=== PATIENT | male | born 1990 | race Caucasian/White ===

== ENCOUNTER 2018-08-08 02:08 | Emergency (ER) | payer MEDICAID, SELFPAY ==
[2018-08-08 02:13] VITALS: BP 145/89; PULSE 82; RESP 20; TEMP 37.4; O2SAT 95
--- NOTE | 2018-08-08 02:23 | DI.RAD_ITS ---
SYMPTOM/DIAGNOSIS: CHEST PAIN, SHORTNESS OF BREATH PA AND LATERAL CHEST: Comparison is made with [birth year] 2016 thoracic spine. The heart size is normal. The lungs are suboptimally inflated but clear. No infiltrate, effusion or pneumothorax seen. IMPRESSION: Negative chest x-ray.
[2018-08-08 02:42] LABS: Abs Immature Grans 0.04 k/cumm (0.0-0.09); Absolute Basophil Count 0.02 k/cumm (0.0-0.2); Absolute Lymphocyte Count 3.21 k/cumm (1.2-3.4); Absolute Monocyte Count 1.12 k/cumm (0.11-0.7); Basophils % 0.2; Eosinophils % 2.6; HCT 45.8 % (40.0-50.0); HGB 15.7 g/dL (13.5-17.5); Immature Grans % 0.3; Lymphocytes % 27.7; Mean Corp. HGB Concentration 34.3 g/dL (32.0-36.0); Mean Corpuscular Hemoglobin 32.3 pg (27.0-33.0); Mean Corpuscular Volume 94.2 fL (80-95); Mean Platelet Volume 9.8 fL (8.0-11.0); Monocytes % 9.7; Neutrophils % 59.5; Platelet Count 239 x1000/uL (130-400); RBC 4.86 m/cumm (4.50-6.00); RBC Distribution Width 12.4 % (11.8-14.1); White Blood Cell Count 11.59 k/cumm (4.4-10.8)
[2018-08-08] MEDS: Normal Saline Flush 10 ML SYR IVP (02:45)
[2018-08-08 03:01] LABS: ALT 41 U/L (12-78); AST 24 U/L (15-37); Albumin 3.5 g/dL (3.4-5.0); Alkaline Phosphatase 61 U/L (46-116); Anion Gap 8.6 mmol/L (3-11); BUN 20 mg/dL (7-18); Bilirubin, Total 0.2 mg/dL (0.2-1.0); CO2 26.4 mmol/L (21.0-32.0); CREATININE 1.01 mg/dL (0.70-1.30); Calcium 9.1 mg/dL (8.5-10.1); Chloride 103 mmol/L (98-107); Glucose 98 mg/dL (70-100); Potassium 3.9 mmol/L (3.5-5.1); Sodium 138 mmol/L (136-145); Total Protein 7.8 g/dL (6.4-8.2); Troponin I < 0.02 ng/mL (0.00-0.06)
--- NOTE | 2018-08-08 03:05 | DI.VRAD_ITS ---
EXAM: XR Chest, 2 Views EXAM DATE/TIME: 08/08/2018 2:26 AM CLINICAL HISTORY: 28 years old, male; Signs and symptoms; Other: Chest pain, shortness of breath TECHNIQUE: XR of the chest, 2 views. COMPARISON: No relevant prior studies available. FINDINGS: Lungs: Unremarkable. No consolidation. Pleural space: Unremarkable. No evidence of pneumothorax. Heart/Mediastinum: Unremarkable. Heart size within normal limits for technique. Bones/joints: Unremarkable. No evidence of acute fracture. IMPRESSION: No acute findings. Dictated and Authenticated by: Flaquito Shultz MD. Ordering:TORO MATOS MD
[2018-08-08 03:15] LABS: D-Dimer 491 ng/mlFEU (<500)
[2018-08-08 03:36] VITALS: BP 131/71; PULSE 74; RESP 16; O2SAT 95
[2018-08-08 04:35] VITALS: BP 116/70; PULSE 76; RESP 16; TEMP 37; O2SAT 96
--- NOTE | 2018-08-08 04:47 | ED.GENADUL_ITS ---
Discharge Plan Disposition Patient Disposition: HOME Condition: Good Discharge Details Chief Complaint: Chest/Rib Clinical Impression: Chest pain, pleuritic ED Provider: Gino Campbell Meds and New Rx's Prescriptions: New ibuprofen 800 mg tablet 800 mg PO TID PRN (Reason: pain) Qty: 20 RF: 0 Changed acetaminophen [Mapap Extra Strength] 500 MG tablet 1,000 mg PO Q8H PRNQty: 0 RF: 0 Discontinued Ibuprofen [Ibuprofen Ib] 200 MG tablet 800 mg PO PRN PRNRF: 0 Discharge Instructions Additional Instructions: Use ibuprofen and acetaminophen and alternate between medications. Watch for rash as discussed and call PCP or return. Follow-up in a week if not doing better. Return to ED if you develop high fever, shortness of breath, new or worsening pain. Referrals: Primary Care Provider [Outside] Medical Decision Making Patient here with right sided pleuritic chest pain. Slightly diminished on the right on exam but I think it is because of splinting not pneumothorax. There is no rash. There is some tenderness laterally and anteriorly. His abdomen is benign. Saturations are anywhere from 93-96% on room air. Differential includes pneumothorax, pneumonia, pleurisy, PE. Not likely to be ACS given his age and presentation. His EKG is unremarkable. IV is established laboratory studies obtained including a d-dimer. He had taken ibuprofen prior to coming in so he is not given Toradol. He is given 4 of morphine. Chest x-ray is ordered. CXR normal per my review and preliminary radiology read. There is no pneumothorax. Laboratory studies unremarkable. D-dimer is 491 which is technically negative with a cutoff of 500. However, patient continues to have significant discomfort even with morphine. Saturations are 93-95% on room air. It is likely that this is going to be related to pleurisy but given his discomfort and slightly low saturations which may be related to splinting and smoking we discussed scanning for PE and patient is agreeable. CT of chest is negative. There is no PE, pneumonia, pneumothorax. Second troponin is negative. EKG remains normal. Patient is feeling better. Patient will be continued on nonsteroidals for presumed pleurisy. He is told to watch for vesicular rash. Follow-up with primary care next week. Return to ED if worse. Lab Data Lab results reviewed: Yes I reviewed the patient's lab results. ECG Data Attestation: I personally reviewed and interpreted this ECG (s) as follows: Prior ECG tracings: not available for review Interpretation: Sinus rhythm at a rate of 80. Normal axis and intervals. No acute ST changes noted. HPI General Mode of arrival: ambulatory . Date/Time Provider Initiated Documentation: 08/08/18 02:23 . Limitations to Documentation: no limitations . Information obtained by: patient . HPI Narrative: Patient presents to ED with right sided pleuritic chest pain. Patient reports developing some right upper back discomfort 1-2 days ago. He did not think much of it as he periodically develops back pain. Tonight he awoke around midnight with severe right sided chest pain. Pain is worse with breathing or coughing. It was not necessarily worse with movement. He did take ibuprofen at home with no relief. He waited a couple of hours but did not seem to be getting better. He felt short of breath in that he cannot take a deep breath and just regular breathing caused him discomfort and pain. He denies any fever or cough. He denies any abdominal pain, nausea, vomiting. He has no rash that he is aware of. He has not had this pain previously. Related Data Home Medications Medication Instructions Recorded Confirmed acetaminophen [Mapap Extra 1,000 mg PO Q8H PRN #0 tab 08/08/18 08/08/18 Strength] ibuprofen 800 mg PO TID PRN #20 tab 08/08/18 Previous Rx's Medication Instructions Recorded acetaminophen [Mapap Extra 1,000 mg PO Q8H PRN #0 tab 08/08/18 Strength] ibuprofen 800 mg PO TID PRN #20 tab 08/08/18 Allergies Allergy/AdvReac Type Severity Reaction Status Date / Time No Known Allergies Allergy Unverified 08/08/18 02:25 General Stated Complaint: Chest/Rib KARLA: 2 Review of Systems Constitutional Denies chills, Denies fever(s), Denies headache(s) and Denies weakness Eyes Denies change in vision and Denies eye pain ENT Denies facial pain, Denies headache(s), Denies neck pain and Denies sinus pain Cardiovascular Reports chest pain, Denies syncope, Denies pedal edema, Denies edema and Reports dyspnea Respiratory Denies chest congestion, Denies cough, Denies hemoptysis, Reports pain on inspiration, Reports pain with cough and Reports dyspnea Gastrointestinal Denies abdominal pain, Denies diarrhea, Denies nausea and Denies vomiting Genitourinary Denies hematuria, Denies dysuria and Denies flank pain Musculoskeletal Reports back pain, Denies muscle cramps, Denies neck pain and Denies numbness Integumentary/Breasts Denies rash Neurologic Denies syncope, Denies headache(s), Denies focal weakness, Denies numbness and Denies weakness PFSH S/P ACL reconstruction (Acute) Social History Smoking/Tobacco Use Status: Current every day Exam Const General: cooperative and uncomfortable Nutritional Appearance: average body habitus Orientation: alert and oriented x3 HENMT Head: normocephalic and atraumatic Neck Neck: normal visual inspection, full ROM, trachea midline and supple Chest Chest: tenderness rib (right lower lateral/anterior) and No rash Resp Effort & Inspection: no cough, no respiratory distress and other (Splinting) Auscultation: diminished lung sounds on the right (slightly diminished but present) throughout Cardio Rate: regular rate Rhythm: regular rhythm Heart Sounds: S1 normal and S2 normal Pulses: radial pulses present GI Palpation: soft, no guarding and nontender Back/Spine/Pelvis Back: No erythema and No back tenderness Thoracic/Lumbar Spine: thoraco-lumbar ROM normal and No pain with thoraco- lumbar ROM Skin General skin exam: no rashes or lesions noted Neuro General: alert, oriented x3, no focal motor deficits and CN's II-XI intact bilaterally Extrem General: no clubbing, cyanosis or edema and no calf tenderness Course Vital Signs Temperature 99.3 F 08/08/18 02:13 Pulse 82 08/08/18 02:13 Respiratory Rate 20 08/08/18 02:13 Blood Pressure 145/89 H 08/08/18 02:13 Pulse Oximetry 95 08/08/18 02:13 Temperature 99.3 F 08/08/18 02:13 Temperature Source Temporal Artery Scan 08/08/18 02:13 Pulse 82 08/08/18 02:13 Respiratory Rate 20 08/08/18 02:13 Respiratory Effort 08/08/18 02:24 Respiratory Depth Shallow 08/08/18 02:19 Respiratory Pattern Normal 08/08/18 02:19 Blood Pressure 145/89 H 08/08/18 02:13 Blood Pressure Position Sitting 08/08/18 02:13 Pulse Oximetry 95 08/08/18 02:13 Oxygen Delivery Method Room Air 08/08/18 02:13 Oxygen Flow Rate 0 08/08/18 02:13 Pain Level 10 08/08/18 02:19 Comment 08/08/18 02:13 Lab/Test Results Lab/Test Results: Laboratory Tests Range/Units 08/08/18 02:32 WBC (4.4-10.8) k/cumm 11.59 H RBC (4.50-6.00) m/cumm 4.86 Hgb (13.5-17.5) g/dL 15.7 Hct (40.0-50.0) % 45.8 MCV (80-95) fL 94.2 MCH (27.0-33.0) pg 32.3 MCHC (32.0-36.0) g/dL 34.3 RDW (11.8-14.1) % 12.4 Plt Count (130-400) x1000/uL 239 MPV (8.0-11.0) fL 9.8 Immature Gran % 0.3 Neutrophils % 59.5 Lymphocytes % 27.7 Monocytes % 9.7 Eosinophils % 2.6 Basophils % 0.2 Absolute Neutrophils (1.2-6.7) k/cumm 6.90 H Absolute Lymphocytes (1.2-3.4) k/cumm 3.21 Absolute Monocytes (0.11-0.7) k/cumm 1.12 H Absolute Eosinophils (0.0-0.7) k/cumm 0.30 Absolute Basophils (0.0-0.2) k/cumm 0.02
--- NOTE | 2018-08-08 04:50 | DI.CT_ITS ---
SYMPTOM/DIAGNOSIS: RIGHT PLEURITIC CHEST PAIN CHEST CT FOR PULMONARY EMBOLISM: CT angiography was performed with multi slice acquisition and multi planar and 3D reconstruction. There is no evidence of pulmonary emboli or aortic dissection. The lungs appear clear. No pleural or pericardial effusions are present. The visualized portions of the upper abdomen are unremarkable. IMPRESSION: Negative chest CT. No evidence of pulmonary emboli or other acute abnormality.
[2018-08-08] MEDS: Omnipaque 350 MG/ML 100 ML BTL IJ (04:52)
--- NOTE | 2018-08-08 04:58 | DI.VRAD_ITS ---
EXAM: CT Angiography Chest With Contrast EXAM DATE/TIME: 08/08/2018 4:00 AM CLINICAL HISTORY: 28 years old, male; Signs and symptoms; Other: Right pleuritic chest pain TECHNIQUE: Axial computed tomographic angiography images of the chest with intravenous contrast using CT angiography protocol. All CT scans at this facility use at least one of these dose optimization techniques: automated exposure control; mA and/or kV adjustment per patient size (includes targeted exams where dose is matched to clinical indication); or iterative reconstruction. Coronal and sagittal reformatted images were created and reviewed. MIP reconstructed images were created and reviewed. CONTRAST: 95 ml of Omnipaque 350 administered intravenously. COMPARISON: CR XR CHEST 2V PA LATERAL 08/08/2018 2:49 AM FINDINGS: Pulmonary arteries: Unremarkable. No obvious pulmonary emboli. Aorta: Unremarkable. No aortic aneurysm. No aortic dissection. Lungs: Minimal dependent atelectasis. Pleural space: Unremarkable. No pneumothorax. No pleural effusion. Heart: Unremarkable. No pericardial effusion. No obvious heart strain. Lymph nodes: Unremarkable. No enlarged lymph nodes. Bones/joints: Unremarkable. No acute fracture. Soft tissues: Unremarkable. IMPRESSION: Normal study. Dictated and Authenticated by: Flaquito Shultz MD. Ordering:TORO MATOS MD
[2018-08-08 05:42] VITALS: BP 119/80; PULSE 81; RESP 16; O2SAT 95
[2018-08-08 05:52] LABS: Troponin I 0.02 ng/mL (0.00-0.06)
[2018-08-08 07:23] VITALS: BP 126/72; PULSE 67; RESP 18; TEMP 36.7; O2SAT 97
== END 2018-08-08 07:15 | disposition home or self-care (01) ==
LOC: ER 07:17
PROVIDERS: Emergency Provider Emergency Medicine; PCP Internal Medicine Sleep Medicine
DX: R07.89 Other chest pain (principal)
CPT/HCPCS: 36415; 71275; 80053; 93005; 96374; 99285; 71046; 84484; 85025; 85379; 93010; 99284; J3490

== ENCOUNTER 2018-09-22 09:25 | Day surgery (SDC) | payer MEDICAID, SELFPAY ==
[2018-09-22] VITALS (8 sets, daily range): BP systolic 96–133; BP diastolic 44–87; PULSE 70–83; RESP 12–20; TEMP 36.6–37.2; O2SAT 95–98
[2018-09-22] MEDS: Lactated Ringers 1,000 ML 80 ML IV ×2 (10:10→12:30)
[2018-09-22] MEDS: Acetaminophen 500 MG TAB 1000 MG PO (10:31)
[2018-09-22] MEDS: Gabapentin 300 MG CAP PO (10:32)
[2018-09-22] MEDS: oxyCODONE-CR 10 MG TABCR PO (10:32)
[2018-09-22] MEDS: Celecoxib 200 MG CAP 400 MG PO (10:32)
[2018-09-22] MEDS: Ketorolac 30 MG/ML VIAL (14:21)
[2018-09-22] MEDS: Bupivacaine 0.25% Pres-Free 30 ML VIAL (14:21)
--- NOTE | 2018-09-22 14:37 | W.PM.DSUDISC ---
Discharge Plan Disposition Patient Disposition: HOME Condition: Good Discharge Details Reason For Visit: Revision L ACL Reconstruction, Meniscal Repair Attending Provider: Lex Garland Primary Care Provider: Km Ventura Home Meds and New Rx's Prescriptions: New oxycodone 5 mg tablet 5 mg PO Q4H Qty: 18 RF: 0 Continued ibuprofen 800 mg tablet 800 mg PO TID PRN (Reason: pain) Qty: 90 RF: 3 acetaminophen [Mapap Extra Strength] 500 MG tablet 1,000 mg PO Q8H PRNQty: 100 RF: 3 Discharge Instructions Additional Instructions: Activity: You may bear weight as tolerated on the leg as long as the brace is on and locked and you are using crutches for support. You should keep the brace on and locked at all times until your follow-up. You should use crutches to support the knee. You may move your ankle and toes as needed. Dressing: You should keep the knee dressing in place until your follow-up appointment. If it becomes soiled or it unravels, you should call to notify Dr. Garland and/or his staff. You may rewrap or overwrap until the follow-up. Medications: - You should take Tylenol and Ibuprofen around the clock for the first days-weeks. This will cover baseline pain control. - You have been prescribed a stronger medication, Oxycodone, use if needed. If this is necessary, and you need a refill, please call Dr. Garland's office or page him through the hospital. Follow-up: 1 week Referrals: Lex Garland MD [ [facility] STAFF PHYSICIAN] - Equipment/Supplies: Partial Weight Bearing Crutches Activity:: Elevate Remove Dressings/Wound Care:: Do Not Remove Shower/Bathe:: Cover Diet:: As Tolerated Discharge Orders Discharge Orders: Discharge Order (Routine); Ordered 09/22/18 Ordered By: Lex Garland DS: Diagnosis Discharge Diagnosis (1) Complete tear of anterior cruciate ligament of left knee: Status: Acute (2) Acute medial meniscus tear of left knee: Status: Acute (3) Acute lateral meniscal injury of left knee: Status: Acute
[2018-09-22] MEDS: Normal Saline Flush 10 ML SYR IV (15:27)
[2018-09-22] MEDS: HYDROmorphone 2 MG/ML VIAL IVP ×2 (15:28→15:34)
[2018-09-22] MEDS: oxyCODONE 5 MG TAB PO (16:21)
--- NOTE | 2018-09-23 09:02 | ROE_ITS ---
REPORT OF OPERATIVE PROCEDURE DATE OF SURGERY September 22, 2018 PREOPERATIVE DIAGNOSES Recurrent left ACL tear and medial meniscal tear. POSTOPERATIVE DIAGNOSES Recurrent left ACL tear, left medial meniscal tear, and left lateral meniscal tear. SURGERY Revision ACL reconstruction with patellar tendon autograft, lateral meniscal repair, medial meniscal repair. ANESTHESIA General. SURGEON Lex Garland M.D. LEATHER REPAIRER Erika Mayen ESTIMATED BLOOD LOSS 20 cc. COMPLICATIONS None. FINDINGS The Allograft ACL was not identifiable. The tunnels were vacant over the femur and the tibial tunnel had no significant soft tissue seen. An ACL reconstruction was performed with a BTB autograft with ex cellent fixation. The medial meniscus also had a vertical tear and the posterior horn of the meniscus , which seemed to be partially healed on the superior side, but not on the inferior side. This was al so repaired with a single Mitek Truespan meniscal repair device. The lateral meniscus also had a vert ical tear right at its periphery in the popliteal hiatus. This was repaired using two meniscal repair devices. These both helped allow the meniscus to not displace into the joint with probing. DISPOSITION The patient was awakened from anesthesia and taken to the PACU in a stable condition. INDICATION FOR PROCEDURE Javier is a 28-year-old who previously had an ACL tear with meniscal tear. He underwent an ACL reconstr uction with Allograft, as well as meniscal repair. He did well initially, but still had some pain unt il he had multiple falls in the recovery period. It was during this time that he continued to have pa in and instability. A repeat MRI showed that he had loss the integrity of the ACL graft. He continued to try conservative treatment options including therapy to bracing, however, he continued to have in stability and pain with any particular motions, especially those of turning or twisting. Given the fa ilure to conservative treatment options, I offered a revision, ACL reconstruction with evaluation of the meniscus and likely repair. I reviewed the risks of the procedure to include bleeding, infection, pain, stiffness, damage to nerves and vessels, damage to muscle and tendons, re-tear, hardware promi nence, hardware failure, failure of meniscal repair, damage to nerves and vessels, blood clot. Despit e these risks, he elected to proceed. PROCEDURE DESCRIPTION Javier was greeted in the preoperative holding area. His identity was confirmed and the correct side w as identified and marked. The history and physical was updated. The consent was reviewed with the galen hargrove and signed. He was then taken back to the Operating Room. He was placed in the supine position. All bony prominen bo were padded. A general anesthetic was administered. A nonsterile tourniquet was placed high on the left leg, but it was not used during the case. The lef t leg was prepped with ChloraPrep and draped in a standard fashion. Prophylactic antibiotics in the f orm of Cefazolin were given. A time-out was performed for safe surgery. The left leg was first examined, this showed a grossly unstable pivot shift test. He also had gross e xcursion, nearly 10 millimeters with Fadi maneuver. The left leg was then placed into the Spider2 pneumatic leg johnson. Previous portal sites were marked on the skin. The knee was insufflated with 50 cc of normal saline. A standard lateral arthroscope portal was then made. The knee was entered atrau matically with a blunt arthroscope. This gave us excellent visualization of the knee. There were mild inflammatory changes seen superiorly. No significant patellofemoral articulation deficits. There wer e no loose bodies in the lateral gutter or the medial gutter. The scope was then brought into the med ial compartment with the knee in a slight valgus stress. In maneuvering this position, it subluxed th e tibia forward as a positive pivot shift during the arthroscopy. The previous anteromedial portal wa s seen, this was used. It was quite low, but it was able to be brought on top of the anteromedial men iscus. The probe was inserted in this area. There was no significant cartilage defect, except for so me mild thinning seen anteriorly. The meniscus was probed, and there was a notable instability to the posterior horn of the medial meniscus. While driving over the top of the meniscus, there was no sepa ration from the capsule from the peripheral tissues. However, the undersurface of the medial meniscus in the posterior horn region did not seem to be attached fully. I performed a local debridement of this area identifying a loose horizontal leaflet. This was debrided down and a partial medial menisce ctomy. There still was a large component, which seemed to be unstable and I was able to probe a verti dave defect of the periphery of the posterior horn of the medial meniscus with a superior attachment. Therefore, I used a Mitek Truespan device, all inside meniscal repair system, to secure the inferior aspect of the posterior and the medial meniscus to the capsular tissues. Before proceeding with this, I used a shaver and a spinal needle to debride, and trephinate the area for blood flow. The meniscal device was then inserted and re-approximated the inferior surface to the periphery. There was no fur ther displacement of the meniscal component. The areas next to this were then debrided down for any l oose edges. The meniscus once again was probed and noted to be stable. The meniscal root was intact. The leg was then brought into a [id number] position. In this position, the lateral compartment wa s investigated. There was noted to be some changes to the posterior root of the lateral meniscus. Thi s was probably from an old debridement. There was some fraying seen. However, the root was intact. Th e excess degeneration in this area was debrided down with a shaver and did not show any signs of deta chment from the root. On closer inspection of the lateral meniscus, it did show there was a vertical tear seen on the posterior horn of the meniscus at the level of the popliteal hiatus. This was grossl y unstable. I then used a shaver to debride this area. I used a spinal needle to trephinate the area, as well as a rasp. Given the popliteus was in this area, I still continued with repair, trying to aim more shal low. I placed two Truespan devices in this area, one in a horizontal mattress fashion, one in a verti dave mattress fashion to reapproximate the tissues. They were grossly unstable with probing prior. Af ter the repair they were well attached to the periphery and did not displace into the joint. There wa s no significant cartilage damage in this area. The knee was then brought back into about 90 degrees of flexion. The notch was inspected. This showed really no remnant ACL tissue. There was some scarrin g seen next to the PCL. The plane between the PCL and the scarring was and the tissues were debrided. The femoral tunnel was identified, and this was cleaned fully with a shaver. The tibial em inence was also debrided down and, again showed no signs of any Allograft tissue remaining. With the scope in the lateral portal, and a shaver in the anteromedial portal, the knee was brought into hyper flexion, approximately 120 degrees. In this position, I had a direct shot of the shaver into the femo ral tunnel. I used a shaver to debride down any remnant tissue in the femoral tunnel. I also used an electrocautery device to further debride this down. The aperture of the tunnel measured approximately 12 mm in diameter. The depth was approximately 20 mm in diameter. I then used a 10.5-mm low profile reamer to advance this tunnel another 5 millimeters. I used a curette to scrape the inside of the wal l to promote any bony healing. The scope and equipment was then removed. We then turned our attention to the harvesting of the autograft. A midline incision was made overlyin g the knee. Dissection was carried down sharply through the skin and soft tissue. The peritenon was t hen identified. It was split separately to be repaired after the harvest of the graft. The peritenon was split from the level of the patella down to the level of the tibial tubercle. The tendon was iden tified, it was measured to be 33 millimeters in diameter in width. I aimed for at least a 10 mm graft with a larger bone block. Once the width of the graft was measured, the graft was incised sharply wi th a knife in the line with the patellar tendon fibers in the central third of the tendon. This was taken down sharply on the tibial tubercle and sharply upon to the patella. With adequate exposure, I then performed the bone block cutting from the patella. A 10 x 25 mm bone block was harvested. This w as harvested with sharp angles to form a triangular bone block and avoid any penetration into the art icular surface of the patella or cause a fracture. Using the osteotome to complete the cut, it easily from the base of the patella. We then turned our attention to the tibial tubercle side. Th is again was marked for a 25-mm length and a minimum 10-mm width. The bone block was able to be harve sted in a larger depth to have adequate bone. Once this was completed, osteotome was used to finish t he bone block resection. This was taken over to the back table and kept moist. Bone graft was taken f rom the proximal tibia to be used to fill patellar defect. This bone graft, was placed into the defec t on the patella. The tendon was loosely reapproximated. The peritenon was reapproximated with a #0-V icryl in a running fashion. This helped trap in the bone graft into the patella. The patella, patella r tendon and retinacular tissues, and the tibial tubercle and proximal tibia was then injected with a periarticular cocktail. This consisted of 20 cc of Exparel, 50 cc of 0.25% bupivacaine and 30 mg of Ketorolac. A portion of this was injected in this area. The skin and soft tissues were then reapproxi mated with a #0 Vicryl, followed by #2-0 Vicryl and then a #4-0 Monocryl. On the back table, the graft was prepared. Two drill holes were placed in each bone block. A #2 Ortho cord was placed through each bone block. The graft was placed in 10 pounds of traction and kept moist with normal saline. The bone blocks fit snugly through a 10-mm tunnel on the patellar side and an 11 -mm tunnel on the tibial side. This was slightly trimmed down and a 10.5-mm tunnel was noted to be nuñez fficient. Back at the knee, the previous medial incision over the proximal tibia was incised. This was taken do wn sharply through the skin and soft tissue. The prominence from the previous graft was identified an d dissected. I was able to find the tibial tunnel. Remnant tissue and suture were removed. The tibial tunnel was easily entered. Any remnant from the screw was not identifiable. I was able to penetrate into the joint from this area. A guidewire was placed through the tibial tunnel and into the notch. U nfortunately, this seemed to direct me slightly more medial than I would like. However, I was unable to re-direct it more lateral due to the bend of the wire. I accepted this position and then ran a 10. 5-mm reamer over this, airing on the lateral side at all attempts. I also then used a shaver to clean out the tibial tunnel from the tibia side. I also used a 5-mm rossy to rossy down the lateral aspect o f the tibial tunnel to bias a graft more lateral since I was initially displaced medial. Once this w as completed, curette was also used to smooth the edges of the tibial tunnel. A passing suture was th en passed through the femur and then out the tibia. The graft was then brought in through the tibia a nd into the knee, and then up into the femur. The bone block was manipulated so the bone was facing a nteriorly and a tendon bulk was facing posteriorly. A Nitinol wire was placed on the anterior surface of this bone block. Malleable graft retractor was used to help hold this in place and the 10 x 23 mm Mitek Linda interference screw was then inserted. This was placed with excellent friction and inte rference fit. It noted to be flush of the tunnel with excellent market reporter onto the bone. This was tested a nd noted to be well intact. Traction was then held on the sutures coming out of the tibia and the knee was cycled for 25 times. I t was then brought into 30 degrees of flexion. In this position, it was then held with some traction and a Nitinol wire was placed overlying the lateral aspect of the bone block. Again, this was utiliz ed, on the medial aspect to help push the graft more lateral. With the Nitinol wire in position, the 10 x 23-mm interference screw was placed and advanced with exc ellent fixation and interference fit. The transit driver was removed. Excess sutures were removed. The knee w as tested, which had 1 to 2 millimeters of excursion at maximum for the Fadi maneuver. The scope w as re-inserted into the knee, which showed excellent graft placement. There was no notable notch impi ngement. There was some slight impingement onto the PCL in maximal extension. Any excess debridement was then removed from the knee joint. Excess fluid was removed. The scope was removed. The portal sites and injection sites were injected with the remainder of the periarticular cocktail. The knee joint itself was injected with 10 cc of 0.5% bupivacaine. The wounds were closed with #2-0 V icryl, followed by 4-0 Monocryl. These were covered with Steri-Strips, 4x4s, ABD, Kerlix and Ankur wrap . A Cryo/Cuff was applied. A hinged knee brace was placed with the knee locked in extension. At the end of the case, all counts were correct. No tourniquet was used. He was awakened from anesth esia and taken to the PACU in stable condition.
== END 2018-09-22 16:45 | disposition home or self-care (01) ==
PROVIDERS: PCP Internal Medicine Sleep Medicine; Visit Provider Student in an Organized Health Care Education/Training Program
PROC: (CPT 29888; principal; 2018-09-22 12:00)
DX: T84.89XA Other specified complication of internal orthopedic prosthetic devices, implants and grafts, initial encounter (principal); S83.512A Sprain of anterior cruciate ligament of left knee, initial encounter; S83.242A Other tear of medial meniscus, current injury, left knee, initial encounter; S83.262A Peripheral tear of lateral meniscus, current injury, left knee, initial encounter; W19.XXXA Unspecified fall, initial encounter
CPT/HCPCS: 27407; 29883; E0114; J0690; J1100; J1885; J3010; L1833; L8699

== ENCOUNTER 2020-05-25 09:27 | Outpatient (CLI) | payer MEDICAID, SELFPAY ==
--- NOTE | 2020-05-25 08:30 | DI.RAD_ITS ---
EXAM: XR KNEE LT 4V AP,LAT,ELIDIA,PAT CLINICAL HISTORY: lt knee pain. TECHNIQUE: 2D digital imaging was performed. COMPARISON: CR XR KNEE 4 VIEW LEFT from 12/09/2017 CR XR CHEST 2V PA LATERAL from 08/08/2018 FINDINGS: BONES: No acute fracture is present. No bony destructive lesion is seen. Findings of a prior ACL rep air. JOINTS: The knee is normally aligned. No joint effusion is seen. Mild degenerative changes are seen i n the knee characterized by joint space narrowing and periarticular spurring predominantly in the lat eral femoral tibial joint. Chondrocalcinosis is present. SOFT TISSUE: Normal. IMPRESSION: Mild degenerative changes of the left knee. DATA REPOSITORY: RADIATION DOSE DELIVERED:
== END 2020-05-25 09:47 ==
PROVIDERS: PCP Internal Medicine Sleep Medicine; Referring Provider Internal Medicine Sleep Medicine; Visit Provider Physician Assistant Surgical
DX: M17.12 Unilateral primary osteoarthritis, left knee (principal)
CPT/HCPCS: 73564

== ENCOUNTER 2020-06-01 02:31 | Outpatient (CLI) | payer MEDICAID, SELFPAY ==
--- NOTE | 2020-06-01 06:45 | DI.MRI_ITS ---
EXAM: MR LOWER JOINT LT WO CLINICAL HISTORY: KNEE PAIN,S/P RECONSTRUCTION ACL,Z98.890. TECHNIQUE: Multiplanar multisequence MRI was performed. COMPARISON: MR MR KNEE LEFT WO CONTRAST from 12/26/2017 CR XR KNEE LT 4V AP,LAT,ELIDIA,PAT from 05/25/2020 FINDINGS: The patient is again noted be status post ACL repair. The anterior cruciate ligaments appears intact. Posterior cruciate ligament, medial and lateral collateral ligaments and extensor mechanism appear i ntact. Degenerative and/or postsurgical changes are again noted of the menisci. There is now a small linear longitudinally oriented tear near the medial apex the posterior horn the medial meniscus. Ther e is spur mild spurring from the femoral condyles and tibial plateaus. The marrow signal is normal. T here is a small joint effusion. No focal cartilage defects are seen. IMPRESSION: Longitudinal tear of the posterior horn of the medial meniscus. Intact ACL repair. DATA REPOSITORY:
== END 2020-06-01 02:51 ==
PROVIDERS: PCP Internal Medicine Sleep Medicine; Visit Provider Student in an Organized Health Care Education/Training Program
DX: Z98.890 Other specified postprocedural states; S83.242A Other tear of medial meniscus, current injury, left knee, initial encounter
CPT/HCPCS: 73721

== ENCOUNTER 2020-08-11 17:28 | Emergency (ER) | payer MEDICAID, SELFPAY ==
[2020-08-11 17:32] VITALS: BP 156/98; PULSE 100; RESP 17; TEMP 36.4; O2SAT 98
--- NOTE | 2020-08-11 17:44 | DI.RAD_ITS ---
EXAM: XR HUMERUS RT CLINICAL HISTORY: BIceps pain, ? rupture. TECHNIQUE: 2D digital imaging was performed. COMPARISON: No exams were available for comparison FINDINGS: BONES: No acute fracture is present. No bony destructive lesion is seen. Visualized portion of elbow and shoulder joints are unremarkable. SOFT TISSUE: Normal. IMPRESSION: Unremarkable radiographs of the right humerus. If there is concern for biceps rupture, MRI should be considered for further evaluation. DATA REPOSITORY: RADIATION DOSE DELIVERED:
--- NOTE | 2020-08-11 17:57 | NUR.NOTE ---
pt declined tylenol, states i would have taken that at home if i thought it would work. no, i dont want that.:
--- NOTE | 2020-08-11 18:20 | ED.GENADUL_ITS ---
Discharge Plan Disposition Patient Disposition: HOME Condition: Stable Discharge Details Chief Complaint: Orthopedic Clinical Impression: Rupture of right biceps tendon Primary Care Provider: Unknown,Unknown ED Provider: Allen Burgos Home Meds and New Rx's Prescriptions: No Action No Known Home Meds RF: 0 Discharge Instructions Additional Instructions: Apply ice 20 minutes at a time to reduce discomfort. May use the provided hydrocodone if needed for severe or breakthrough pain. Follow-up with Dr. Garland on Friday as planned. Sling while awake and out of bed. Return to the ER for any acute concerns. Medical Decision Making 30-year-old male presents from home stating he was trying to flip a 600 pound gun safe when he felt acute pain in his right biceps and the muscle coiled up. He arrives with a palpable defect of the right biceps, consistent with acute biceps rupture. Referred for x-ray without any evidence of acute bony findings. He has prestanding follow-up with Dr. Garland on Friday for his left knee. He will be placed in a sling and follow-up at that time. HPI General Mode of arrival: ambulatory . Date/Time Provider Initiated Documentation: 08/11/20 17:30 . Limitations to Documentation: no limitations . Information obtained by: patient . History of Present Illness 30 year old M presents to the emergency department with the chief complaint of right biceps pain, described as moderate, Quality is described as constant, and is localized to the right and upper extremity. Patient reports no radiation. Patient started experiencing this minute(s) and it has been constant. No relieving factors improve symptom(s), No exacerbating factors reported . Patient notes no other symptoms.. Patient did receive the following treatments prior to arrival, none Related Data Home Medications Medication Instructions Recorded Confirmed Unknown [No Known Home Meds] 08/11/20 08/11/20 Allergies Allergy/AdvReac Type Severity Reaction Status Date / Time No Known Allergies Allergy Unverified 08/11/20 17:38 General Stated Complaint: Orthopedic KARLA: 3 Review of Systems Narrative: No other injury. No numbness or tingling. 6 systems reviewed and otherwise negative [facility] Surgical History S/P ACL reconstruction ~10/2014 with allograft Social History Smoking/Tobacco Use Status: Current every day Tobacco Type: cigarettes Smoking risk assessment performed?: Yes Alcohol Intake: current Alcohol Intake frequency: holidays/special occasions only Drug use: Never Do you feel safe at home: Yes Do you feel safe in your relationship?: Yes Exam Narrative Exam Narrative: GEN: awake, alert, oriented 3. Pleasant, well groomed, interactive. HEAD: Normocephalic, atraumatic EXT: Right arm held in slight flexion. Palpable defect of the biceps. Patient does have intact motor diet limited by pain in the right upper extremity. 2+ radial pulse bilaterally. Neuro: Grossly normal neurologic exam, conversant, interactive. Psych: Speech fluent, thoughts congruent, affect normal Course Vital Signs Vital signs: Vital Signs Temperature 36.4 C L 08/11/20 17:32 Pulse 100 H 08/11/20 17:32 Respiratory Rate 17 08/11/20 17:32 Blood Pressure 156/98 H 08/11/20 17:32 Pulse Oximetry 98 08/11/20 17:32 Temperature 36.4 C L 08/11/20 17:32 Temperature Source Temporal Artery Scan 08/11/20 17:32 Pulse 100 H 08/11/20 17:32 Respiratory Rate 17 08/11/20 17:32 Respiratory Effort Non-Labored 08/11/20 17:36 Blood Pressure 156/98 H 08/11/20 17:32 Blood Pressure Position Sitting 08/11/20 17:32 Pulse Oximetry 98 08/11/20 17:32 Pain Level 8 08/11/20 17:32
--- NOTE | 2020-08-11 18:21 | DI.VRAD_ITS ---
PROCEDURE INFORMATION: Exam: XR Right Humerus Exam date and time: 08/11/2020 6:14 PM Age: 30 years old Clinical indication: Upper arm; Right; Patient HX: Biceps pain; Additional info: ? Rupture TECHNIQUE: Imaging protocol: XR Right humerus Views: 2 or more views. COMPARISON: No relevant prior studies available. FINDINGS: Bones/joints: Normal. Soft tissues: Unremarkable. IMPRESSION: 1. No acute bony findings. If clinical symptoms persist recommend followup film in 7-10 days. 2. Cannot evaluate biceps rupture on plain films. Consider MRI for further evaluation of soft tissues. Dictated and Authenticated by: Bhakti Jenkins MD. Ordering:KANDIS Villa MD
== END 2020-08-11 18:40 | disposition home or self-care (01) ==
PROVIDERS: Emergency Provider Emergency Medicine
DX: S46.211A Strain of muscle, fascia and tendon of other parts of biceps, right arm, initial encounter (principal); X50.0XXA Overexertion from strenuous movement or load, initial encounter
CPT/HCPCS: 99283; 73060; 99284

== ENCOUNTER 2020-08-14 10:00 | Outpatient (CLI) | payer MEDICAID, SELFPAY ==
--- NOTE | 2020-08-14 15:45 | DI.MRI_ITS ---
EXAM: MR UPPER JOINT RT WO CLINICAL HISTORY: rupture of right distal biceps tendon, S46.211A, strain of muscle, fascia, TECHNIQUE: Multiplanar multisequence MRI was performed without intravenous contrast. COMPARISON: Recent humerus x-rays reviewed FINDINGS: MARROW: There is no evidence of fracture, bone contusion, nor ominous osseous lesions. ELBOW JOINT: Small amount of increased fluid in the elbow joint.No significant cartilage loss nor ost eochondral defect and there is no evidence of loose intra-articular body. There are no osteophytes. EPICONDYLES: There is no abnormal intraosseous signal in the epicondyles and there is no significant abnormal signal on the common extensor and flexor tendons. COLLATERAL LIGAMENTS: Intact TENDONS: High-grade full-thickness tear of the biceps is noted with significant retraction of the musculotendi nous junction of the elbow level.. There is some mild increased signal noted within the brachialis tendon but without a full-thickness t ear. The triceps tendon is intact. CUBITAL TUNNEL/ULNAR NERVE: The ulnar nerve appears unremarkable beneath the cubital tunnel retinacul um and posterior to the medial epicondyle. There is no evidence of arthritic spur arising from the e picondyle nor olecranon causing impingement on the ulnar nerve. There is no evidence of accessory an coneus muscle causing impingement at this level. There is also no evidence of soft tissue mass nor g anglia on cyst causing impingement at this level. OTHER FINDINGS: IMPRESSION: 1. There is a prominent high-grade full-thickness tear of the biceps tendon with retraction of the mu sculotendinous junction to a level above the elbow joint. 2. Mild increased signal evident in the brachialis tendon but no full-thickness tear. DATA REPOSITORY:
--- NOTE | 2020-08-14 17:16 | DI.VRAD_ITS ---
PROCEDURE INFORMATION: Exam: MR Right Upper Extremity Joint Without Contrast; Elbow Exam date and time: 08/14/2020 4:37 PM Age: 30 years old Clinical indication: Injury or trauma; Other: Lifting/strain; Sprain or strain; Elbow; Right; Injury date: 08/11/14; Injury details: Lifting injury, felt biceps let go TECHNIQUE: Imaging protocol: MR of the Right upper extremity without contrast. Exam focused on the elbow. COMPARISON: CR XR HUMERUS RT 08/11/2020 6:11 PM FINDINGS: Bones and cartilage: There is a normal proportion of hematopoietic bone marrow and fat for this patient's age. There is no evidence of abnormal bone marrow signal intensity to suggest contusion or occult fracture. There is no linear signal abnormality to suggest the presence of an acute fracture. There is no evidence of degenerative subchondral cyst formation. There are no free intra-articular osteochondral bodies present. Joint spaces: A small elbow joint effusion is present. There is no evidence of joint space heterogeneity to suggest synovitis. The articular cartilage is well preserved in all joint spaces. Ulnar (medial) collateral ligament: The medial collateral, lateral ulnar collateral and radial collateral ligaments appear normal. Radial collateral ligament of the elbow: Unremarkable. No tear. Annular ligament of the radius: The annular ligament is normal. Tendon of the biceps brachii: The biceps tendon insertion is abnormal. There is complete rupture and retraction of the distal biceps insertion from the radial tuberosity, with no significant tendon remnant at the tuberosity. The torn tendon is retracted 10 cm, and the distal torn margin of the tendon is seen in the upper arm on images 21 through 25 of series 5001 and images 1 through 16 of series 9001 as well as image 22 of series 05912. The biceps tendon insertion at the radial tuberosity is absent on image 31 of series 9001, with fluid and or edema-like signal in the bicipital bursa, and some questionable edema in the adjacent medial supinator muscle. Tendon of the Brachialis: The brachialis tendon insertion is normal. Triceps tendon: The triceps tendon insertion is normal. Common flexor tendon: The common flexor tendon origin and medial epicondyle are normal. Common extensor tendon: The common extensor tendon origin and lateral epicondyle are normal. Muscles: The major muscle groups around the elbow appear normal. Soft tissues: Unremarkable. IMPRESSION: 1. The biceps tendon insertion is abnormal. There is complete rupture and retraction of the distal biceps insertion from the radial tuberosity, with no significant tendon remnant at the tuberosity. The torn tendon is retracted 10 cm, and the distal torn margin of the tendon is seen in the upper arm on images 21 through 25 of series 5001 and images 1 through 16 of series 9001 as well as image 22 of series 24421. The biceps tendon insertion at the radial tuberosity is absent on image 31 of series 9001, with fluid and or edema-like signal in the bicipital bursa, and some questionable edema in the adjacent medial supinator muscle. 2. The brachialis tendon insertion is normal. 3. A small elbow joint effusion is present. There is no evidence of joint space heterogeneity to suggest synovitis. Dictated and Authenticated by: Leeroy Do MD. Ordering:ADRIAN Vail MD
== END 2020-08-14 10:20 ==
PROVIDERS: Visit Provider Physician Assistant Surgical
DX: S46.211A Strain of muscle, fascia and tendon of other parts of biceps, right arm, initial encounter (principal)
CPT/HCPCS: 73221

== ENCOUNTER 2020-08-15 02:02 | Outpatient (CLI) | payer MEDICAID, SELFPAY ==
[2020-08-17 21:40] LABS: COVID-19 RT-PCR Result NEGATIVE (Negative)
== END 2020-08-15 02:22 ==
PROVIDERS: Student in an Organized Health Care Education/Training Program; Visit Provider Student in an Organized Health Care Education/Training Program
DX: Z01.818 Encounter for other preprocedural examination (principal); Z11.59 Encounter for screening for other viral diseases; S46.211A Strain of muscle, fascia and tendon of other parts of biceps, right arm, initial encounter
CPT/HCPCS: U0003

== ENCOUNTER 2020-08-18 11:56 | Day surgery (SDC) | payer MEDICAID, SELFPAY ==
[2020-08-18] VITALS (8 sets, daily range): BP systolic 115–131; BP diastolic 61–88; PULSE 82–89; RESP 16–24; TEMP 36.4–36.8; O2SAT 92–96
--- NOTE | 2020-08-18 13:15 | DI.RAD_ITS ---
EXAM: XR ELBOW RT LIMITED CLINICAL HISTORY: Rupture of right biceps tendon TECHNIQUE: 2D and realtime digital imaging was performed. CONTRAST MATERIAL: Refer to procedure report. COMPARISON: MR MR UPPER JOINT RT WO from 08/14/2020 FINDINGS: Fluoroscopy was provided for Dr. Vasquez during the performance of a biceps tendon repair. Please ref er to the procedure report for complete details. Fluoro time: 20.5 seconds IMPRESSION:
[2020-08-18] MEDS: Lactated Ringers 1,000 ML 100 ML IV (13:41)
[2020-08-18] MEDS: ceFAZolin 2 GM/50 ML BAG IVPB (14:35)
[2020-08-18] MEDS: Normal Saline 20 ML VIAL (15:52)
[2020-08-18] MEDS: EPINEPHrine 1 MG/ML AMP pres-free (16:43)
[2020-08-18] MEDS: Bupivacaine 0.25% Pres-Free 30 ML VIAL (16:43)
--- NOTE | 2020-08-18 17:04 | NUR.NOTE ---
All patient belongings brought to PACU to follow patient to floor for Phase 2 recovery. Nursing Note:
--- NOTE | 2020-08-18 17:23 | W.PM.DSUDISC ---
Discharge Plan Disposition Patient Disposition: HOME Condition: Stable Discharge Details Reason For Visit: Right distal biceps tendon repair Attending Provider: Panda Vasquez Primary Care Provider: None,None Home Meds and New Rx's Prescriptions: New aspirin 81 mg tablet,delayed release (DR/EC) 81 mg PO DAILY 14 Days Qty: 14 RF: 0 oxycodone 5 mg tablet 5 - 10 mg PO Q4H PRN (Reason: moderate to severe pain) Qty: 22 RF: 0 naproxen 250 mg tablet 250 - 500 mg PO BID PRN (Reason: Moderate pain or swelling) Qty: 60 RF: 0 Discharge Instructions Additional Instructions: Surgery: Right distal biceps tendon repair Activity: Non-weightbearing right upper extremity. Keep elbow bent about 90 degrees. Sling whenever walking or out of the home. May rest forearm on pillows and remove sling when seated or resting. Recommend elevation to minimize swelling discomfort. Light use of the hand and wrist okay. A physical therapy prescription will be provided separately in the office at follow-up if needed. Prescriptions: Aspirin 81 mg take 1 daily to prevent a blood clot for 2 weeks Naproxen 250 mg take 1-2 every 12 hours with a meal as needed for moderate pain Oxycodone 5 mg take 1-2 every 4-6 hours as needed for severe pain You may use [id number] Tylenol (acetaminophen) as needed for mild pain. These pain medications may be taken all at once or in different combinations as needed. Also, recommend Colace (docusate) as a stool softener as surgery and pain medicine cause constipation. Dressings: Leave dressing in place until follow-up. May loosen, remove, or just Ankur compressive wraps as needed for comfort. Follow-up: 10-14 days with an orthopedic physician business development assistant and [address] Vasquez Let us know right away if you develop any redness, drainage, fevers, chest pain, or trouble breathing. Do not drink alcohol or drive for at least 24 hours after anesthesia. Please call the office during business hours with any questions or concerns. Referrals: Panda Vasquez MD [ [facility] STAFF PHYSICIAN] - Discharge Orders Discharge Orders: Discharge Order (Routine); Ordered 08/18/20 Ordered By: Panda Vasquez DS: Diagnosis Discharge Diagnosis (1) Rupture of right biceps tendon: Status: Acute
--- NOTE | 2020-08-18 17:29 | ROE_ITS ---
Date of service: 08/18/20 Time of Service: 17:29 Operative Note Operative Note DATE OF PROCEDURE: 08/18/20 PRE-OP DIAGNOSIS: Right distal biceps tendon rupture POST-OP DIAGNOSIS: same PROCEDURE: Right distal biceps tendon repair, CPT number 59113 SURGEON: Panda Vasquez AUTOMOBILE OR TRUCK RENTAL DISPATCHER: Genna Rose ANESTHESIA: GETA and local ESTIMATED BLOOD LOSS: 30 TOURNIQUET TIME: 0 COMPLICATIONS: None Patient was transported to: PACU Patient's condition: stable Implants: Arthrex distal biceps button Indications: Please see complete medical record for details. Findings: Significantly retracted complete rupture of the distal biceps tendon Procedure Description: In the operating room, general anesthesia was induced. The patient was positioned supine on the operating room table. All bony prominences were well-padded. Preoperative antibiotics were administered. The right upper extremity was prepped and draped in the usual sterile fashion. The correct patient, procedure, and side of the procedure were all verified prior to incision. 20 cc of 0.25% bupivacaine containing epinephrine was infiltrated about the planned transverse incision distal to the antecubital fossa as well as over the palpable biceps tendon coiled in the mid anterior arm. Fluoroscopy was used to localize the radial tuberosity. A few centimeters transverse incision was made and careful sharp and blunt dissection was carried down directly to bone centered on the radial tuberosity with the forearm in full supination. Careful hemostasis was achieved with retraction and protection of branching skin nerves. The radial tuberosity was confirmed on fluoroscopy and then cleared of tendon remnant. The spade tipped drill was then placed taking care to drill and hyperpronation site the anterior to posterior direction was away from the PIN. A bicortical tract was made and the reamer placed over the pin and socket reamed in unicortical fashion. The reamer and pin removed. The wound was copiously irrigated of bony material. Attention was then turned to the retracted biceps tendon and the distal anterior arm. The tendon was palpated over 10 cm proximal to the antecubital fossa. Numerous milking techniques were unsuccessful in delivering the tendon within reach of the distal incision. A small longitudinal incision was then made directly over the retracted tendon, which was easily identified and uncoiled. It was trimmed repaired to fit a 7 mm graft tube. Fiber loop was used to prepare the end the tendon. A fiber stick was then passed from the distal to proximal incision through a bluntly enlarged track fol lowing the wrangell course of the biceps tendon and used to retrieve the suture ends from fiber loop out the distal incision. Appropriate excursion of the tendon was confirmed with the arm flexed about 30 degrees after maintaining steady traction for a brief period. The suture ends were passed through the button and the button inserted and flipped on the far cortex of the radial tuberosity. The tendon was then delivered into the prepared socket maintaining the forearm in full supination and elbow flexed about 30 degrees. A Meridian was used to confirm tendon ends were all loaded into the socket. Suture ends were tensioned, held in the elbow ranged from 9 degrees of flexion full extension. The repair construct was felt to be adequately strong with no tendon distraction from the socket. Suture ends were then final tightened again with the tendon securely docked in the socket. A free needle was used to pass 1 suture through the tendon and then each and and then secured with a knot tie. The repair was again inspected and felt to be strong. The optional interference screw was omitted given the secure fixation and enlarged tendon size that rather well filled the socket. AP and lateral fluoroscopy confirmed appropriate deployment in position of the button on the 4 cortex of the bicipital tuberosity. Both proximal and distal wounds were copiously irrigated normal saline. A vanc omycin soaked sponge was placed into the distal wound while the proximal wound was closed. The remaining 10 cc of 0.25% bupivacaine containing epinephrine was infiltrated subcutaneously about the distal and proximal incisions. The proximal wound was closed using 3-0 Monocryl in a buried under fashion followed by running 3-0 Monocryl subcuticular. The vancomycin sponges were removed distally and that wound irrigated again. 2-0 Monocryl in a buried interrupted fashion used to close subcutaneous tissue. 3-0 Monocryl was used in a running subcuticular fashion to close the skin. Each incision was then covered with Mastisol, Steri-Strips, dry for 4 gauze, and sterile soft roll. The right upper extremity is gently wrapped in Ankur bandage and placed into a shoulder immobilizer sling with the elbow bent about 90 degrees. The radial pulse was only weakly palpable so ultrasound Doppler was brought in and confirmed appropriate signal. The patient awoke from anesthesia without complication and was transferred to the recovery room in a stable condition.
[2020-08-18] MEDS: oxyCODONE 5 MG TAB PO ×2 (18:35→19:08)
[2020-08-18] MEDS: Naproxen 250 MG TAB PO (19:04)
== END 2020-08-18 19:18 | disposition home or self-care (01) ==
LOC: SUR 17:24 → MS 17:59
PROVIDERS: Visit Provider Student in an Organized Health Care Education/Training Program
PROC: (CPT 24341; principal; 2020-08-18 13:00)
DX: S46.211A Strain of muscle, fascia and tendon of other parts of biceps, right arm, initial encounter (principal)
CPT/HCPCS: 24342; 73070; J0171; J0690; J1100; J2001; J2405; J2704; J3010

== ENCOUNTER 2020-10-16 01:41 | Outpatient (CLI) | payer MEDICAID, SELFPAY ==
[2020-10-17 11:52] LABS: COVID-19 RT-PCR UVMMC Result Negative (Negative)
== END 2020-10-16 01:42 | disposition home or self-care (01) ==
LOC: LBO 01:41
PROVIDERS: Visit Provider Student in an Organized Health Care Education/Training Program
DX: Z20.822 Contact with and (suspected) exposure to COVID-19 (principal); Z01.818 Encounter for other preprocedural examination
CPT/HCPCS: U0003

== ENCOUNTER 2020-10-19 08:33 | Day surgery (SDC) | payer MEDICAID, SELFPAY ==
[2020-10-19] VITALS (9 sets, daily range): BP systolic 103–138; BP diastolic 56–88; PULSE 71–78; RESP 16–22; TEMP 36.2–36.8; O2SAT 95–99
[2020-10-19] MEDS: Lactated Ringers 1,000 ML 100 ML IV (09:30)
[2020-10-19] MEDS: ceFAZolin 2 GM/50 ML BAG IVPB (10:27)
[2020-10-19] MEDS: Bupivacaine 0.25% Pres-Free 30 ML VIAL (11:01)
[2020-10-19] MEDS: EPINEPHrine 30 MG/30 ML VIAL (11:10)
--- NOTE | 2020-10-19 12:35 | W.PM.DSUDISC ---
Discharge Plan Disposition Patient Disposition: HOME Condition: Stable Discharge Details Reason For Visit: Left knee diagnostic arthroscopy Attending Provider: Panda Vasquez Primary Care Provider: Unknown,Unknown Home Meds and New Rx's Prescriptions: New oxycodone 5 mg tablet 5 - 10 mg PO Q4H PRN (Reason: moderate to severe pain) Qty: 22 RF: 0 naproxen 250 mg tablet 250 - 500 mg PO BID PRN (Reason: Moderate pain or swelling) Qty: 60 RF: 0 aspirin 325 mg tablet,delayed release (DR/EC) 325 mg PO DAILY 14 Days Qty: 14 RF: 0 Continued naproxen 250 mg tablet 250 - 500 mg PO BID PRN (Reason: Moderate pain or swelling) Qty: 60 RF: 0 Discharge Instructions Additional Instructions: Surgery: Knee arthroscopy with partial medial meniscectomy, partial lateral meniscectomy, removal of hardware, extensive synovectomy, and abrasion arthroplasty. Activity: Weightbearing as tolerated. Advance range of motion as comfort allows. No knee brace or crutches needed as soon as comfortable. No deep knee flexion for 6-8 weeks. Recommend avoiding cutting, pivoting, sports, or squatting for 6-8 weeks. A physical therapy prescription will be sent after follow-up if needed. Prescriptions: Aspirin 325 mg take 1 daily to prevent a blood clot for 2 weeks Naproxen 250 mg take 1-2 every 12 hours with a meal as needed for moderate pain Oxycodone 5 mg take 1-2 every 4-6 hours as needed for severe pain You may use [id number]-[id number] Tylenol (acetaminophen) as needed for mild pain. These pain medications may be taken all at once or in different combinations as needed. Also, recommend Colace (docusate) as a stool softener as surgery and pain medicine cause constipation. Dressings: Leave dressing in place for 3-4 days. May then remove and leave open to air or cover incisions with Band-Aids. May shower after 7 days. Follow-up: 10-[address] Vasquez Let us know right away if you develop any redness, drainage, fevers, chest pain, or trouble breathing. Do not drink alcohol or drive for at least 24 hours after anesthesia. Please call the office during business hours with any questions or concerns. Referrals: Panda Vasquez MD [ [facility] STAFF PHYSICIAN] - Discharge Orders Discharge Orders: Discharge Order (Routine); Ordered 10/19/20 Ordered By: Panda Vasquez DS: Diagnosis Discharge Diagnosis (1) Derangement of posterior horn of medial meniscus of left knee: Status: Acute (2) Status post reconstruction of anterior cruciate ligament: Status: Acute (3) Acute medial meniscus tear of left knee: Status: Acute (4) Complete tear of anterior cruciate ligament of left knee: Status: Acute (5) Acute lateral meniscal injury of left knee: Status: Acute
[2020-10-19] MEDS: HYDROmorphone 2 MG/ML VIAL IVP ×4 (12:55→13:24)
[2020-10-19] MEDS: oxyCODONE 5 MG TAB PO (13:16)
--- NOTE | 2020-10-19 15:34 | W.PM.OP ---
Date of service: 10/19/20 Time of Service: 11:00 Operative Note Operative Note DATE OF PROCEDURE: 10/19/20 PRE-OP DIAGNOSIS: Left knee 1. Medial meniscus tear 2. Lateral meniscus tear 3. Synovitis 4. Chondromalacia 5. Prior revision ACL reconstruction POST-OP DIAGNOSIS: same Left knee 1. Medial meniscus tear 2. Lateral meniscus tear from prior repair failure 3. Synovitis and medial plica 4. Chondromalacia, early marginal osteophyte formation medial & lateral femoral condyles 5. Prior revision ACL reconstruction partial failure tearing PROCEDURE: Left knee 1. Partial medial & lateral meniscectomy, CPT #06396 2. Greater than 2 compartment synovectomy, CPT #65068: Medial plica, lateral, patellofemoral, and intercondylar 3. Medial and lateral femoral condyle abrasion arthroplasty, CPT #20926: Excising marginal osteophytes exposing smooth subchondral bleeding bone 4. Removal of deep implant, CPT #41697: Multiple Mitek meniscus repair all-inside devices SURGEON: Panda Vasquez CO FOUNDER AND CHIEF STRATEGY OFFICER: Genna Rose ANESTHESIA TYPE: Local By Surgeon and General LMA/ETT Refer to Anesthesia Record ESTIMATED BLOOD LOSS: 5 PATHOLOGY: none sent TOURNIQUET TIME: 0 COMPLICATIONS: None Patient was transported to: PACU Patient's condition: stable Indications: Please see complete medical record for details. Findings: Negative Fadi. Negative anterior drawer. Negative pivot shift. Full knee range of motion. Significant synovitis impinging patellofemoral compartment, medial gutter plica, small radial posterior horn medial meniscus body junction white zone tear, moderate medial femoral condyle marginal osteophyte, early intercondylar notch osteophytes, diminutive ACL reconstruction graft with fairly gross laxity and significant partial tearing at both the femoral and tibial attachments with intrasubstance degeneration as well, significant posterior horn lateral meniscus tear, moderate lateral femoral condyle marginal osteophytes. No discrete cartilage lesion. Generalized grade 1-3 articular cartilage degeneration globally. Procedure Description: In the operating room, genral anesthesia was induced. The patient was positioned supine on the operating room table. All bony prominences were well-padded. Preoperative antibiotics were administered. The knee was prepped and draped in the usual sterile fashion. The correct patient, procedure, and side of the procedure were all verified prior to incision. Exam under anesthesia was performed. 10 cc of 0.25% bupivacaine containing epinephrine was infiltrated about the prior anterior medial and anterior lateral knee arthroscopy portals. The portals were established and a complete diagnostic arthroscopy was performed with relevant findings detailed above. The mechanical shaver was used to perform plica removal of the medial gutter. Shaver was then used to remove pathologic synovium from the lateral compartment and intercondylar area as well as working in extension and alternating portals from the patellofemoral compartment. The prior meniscus repair area was probed and found to be largely stable. There was a partial-thickness superior leaflet tear that only probed a small amount. More anterior at the junction of the posterior horn and body there was a small radial white zone tear. Unstable tissue was resected using meniscal biters and contoured to smooth as using curved mechanical shaver. The intercondylar area was then examined and the ACL reconstruction probed. Unfortunate, was found to be significantly degenerative with gross laxity and significant probably 50% tearing at both the tibial attachment over intercondylar spine osteophytes as well as having poor femoral sided attachment. There was a rather large intercondylar osteophyte about the PCL origin on the medial femoral condyle as well. This osteophyte was left alone as to not violate the PCL. Carefully some degenerated frayed ends of the ACL both proximally distally as well as the intrasubstance where removed delicately with a mechanical shaver. The knee was brought into the [id number] position and a grossly degenerated, unstable and frayed lateral meniscus posterior horn tear exposed. Was probed and found to involve the prior meniscus repair all inside device, which was loose. A combination of hand instruments and mechanical instruments were used to remove unfortunately significant posterior horn meniscal tissue near full-thickness as the tear was complex and extended completely to the capsular remnant throughout the majority of the posterior horn. The free ends at the body and root attachments were resected back and contoured to smooth stable margins. As the posterior horn was probed and resected, the prior all inside repair sutures were discovered and removed in pieces using graspers and biters. The plastic capsular buttons were also withdrawn and removed one in entirety and the other in pieces. The large shaver was then brought in and used to resect the medial femoral condyle and lateral femoral condyle marginal osteophytes removing the pathologic early arthritis bone leaving a smooth margin and contour of subchondral bone. The arthroscope was then redirected to the back of the knee through the intercondylar area both posterior medial and posterior lateral. There were no loose bodies, meniscal tissue remnants, or additional plastic pieces from the all inside devices. Care was then taken to complete additional 360 degree inspection about the need for additional pathology, loose meniscal remnant, or any pieces of suture all inside repair devices. The knee was then copiously irrigated through the arthroscope 3 L and out the contralateral portal repeated again from the other side until the effluent was clear without debris. Lastly, under direct arthroscopic visualization an 18-gauge needle was passed into the knee from superior lateral to the superior patellar pouch. The knee was drained of all fluid. The anteromedial anterolateral portals were closed in 3-0 nylon in a baseball portal closure fashion. 20 cc of 0.25% bupivacaine with epinephrine containing 4 mg of morphine was infiltrated into the knee through the previously placed needle. Xeroform, dry 4 x 4 gauze, and sterile soft roll wrapped about the knee. The right lower extremity was then wrapped in a gentle compressive Ankur bandage. The patient awoke from anesthesia without complication and was transferred to the recovery room in a stable condition.
== END 2020-10-19 14:57 | disposition home or self-care (01) ==
PROVIDERS: Visit Provider Student in an Organized Health Care Education/Training Program
PROC: (CPT 29870; principal; 2020-10-19 10:30)
DX: M23.322 Other meniscus derangements, posterior horn of medial meniscus, left knee (principal); M23.352 Other meniscus derangements, posterior horn of lateral meniscus, left knee; M23.8X2 Other internal derangements of left knee; Y83.8 Other surgical procedures as the cause of abnormal reaction of the patient, or of later complication, without mention of misadventure at the time of the procedure; M65.862 Other synovitis and tenosynovitis, left lower leg; M67.52 Plica syndrome, left knee; M94.262 Chondromalacia, left knee; T84.410A Breakdown (mechanical) of muscle and tendon graft, initial encounter; S83.512A Sprain of anterior cruciate ligament of left knee, initial encounter; X58.XXXA Exposure to other specified factors, initial encounter; M25.762 Osteophyte, left knee
CPT/HCPCS: 29879; 29880; 29876; J0690; J1100; J1885; J2001; J2405; J2704

== ENCOUNTER 2021-03-14 10:05 | Outpatient (CLI) | payer MEDICAID, SELFPAY ==
--- NOTE | 2021-03-14 09:30 | DI.RAD_ITS ---
Exam(s) XR KNEE LT 2V AP,LAT EXAM: XR KNEE LT 2V AP,LAT CLINICAL HISTORY: left knee pain. TECHNIQUE: 2D digital imaging was performed. COMPARISON: CR XR KNEE LT 4V AP,LAT,ELIDIA,PAT from 05/25/2020 CR XR KNEE LT 4V AP,LAT,ELIDIA,PAT from 05/25/2020 MR MR LOWER JOINT LT WO from 06/01/2020 FINDINGS: BONES: No acute fracture is present. No bony destructive lesion is seen. Patient is again noted be s tatus post ACL repair. JOINTS: The knee is normally aligned. No joint effusion is seen. There is odnz-[id number]-[id number] narrowing of the lateral femoral tibial joint space. There is mild periarticular spurring. Patellofemoral lisa nt space is unremarkable. SOFT TISSUE: Normal. IMPRESSION: Stable postsurgical and degenerative changes. DATA REPOSITORY: RADIATION DOSE DELIVERED:
== END 2021-03-14 10:06 | disposition home or self-care (01) ==
LOC: DIORS 10:05
PROVIDERS: Visit Provider Student in an Organized Health Care Education/Training Program
DX: M17.12 Unilateral primary osteoarthritis, left knee (principal)
CPT/HCPCS: 73560

== ENCOUNTER 2021-12-30 23:23 | Emergency (ER) | payer MEDICAID, SELFPAY ==
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
--- NOTE | 2021-12-30 23:15 | DI.RAD_ITS ---
Exam(s) XR FEMUR LT EXAM: XR FEMUR LT CLINICAL HISTORY: pain and deformity. TECHNIQUE: 2D digital imaging was performed. Two views. COMPARISON: None. FINDINGS: There is posterior dislocation of the femoral head with with respect to the acetabulum. No fracture is visible. The knee shows evidence of prior ACL repair. IMPRESSION: Posterior dislocation of the left hip. DATA REPOSITORY: RADIATION DOSE DELIVERED:
[2021-12-30 23:21] VITALS: BP 141/96; PULSE 92; RESP 26; TEMP 36.3
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
[2021-12-30] MEDS: Normal Saline 1,000 ML 150 ML IV (23:39)
[2021-12-30] MEDS: HYDROmorphone 2 MG/ML VIAL 1 MG IVP ×2 (23:40→23:41)
[2021-12-30 23:49] LABS: Absolute Basophil Count 0.05 10^3/uL (0.0-0.2); Absolute Eosinophil Count 0.09 10^3/uL (0.0-0.7); Absolute Lymphocyte Count 3.36 10^3/uL (1.2-3.4); Absolute Neutrophil Count 11.28 10^3/uL (1.2-6.7); Basophils % 0.3; Eosinophils % 0.6; HCT 52.9 % (40.0-50.0); HGB 17.4 g/dL (13.5-17.5); Immature Grans % 0.6; Lymphocytes % 21.5; MCH 32.2 pg (27.0-33.0); MCHC 32.9 % (32.0-36.0); MCV 98 fL (80-95); MPV 10.4 fL (8.0-11.0); Monocytes % 4.9; Neutrophils % 72.1; Platelet Count 264 10^3/uL (130-400); RDW 12.6 % (11.8-14.1); RDW-SD 45.6 fL; WBC 15.64 10^3/uL (4.4-10.8)
[2021-12-30 23:57] LABS: Absolute Monocyte Count 0.77 10^3/uL (0.1-0.8)
[2021-12-31] VITALS (88 sets, daily range): BP systolic 126–147; BP diastolic 64–95; PULSE 76–122; RESP 8–32; O2SAT 93–100; BMI 39.2
[2021-12-31] LABS: PTT Activated 22.6 sec (21.0-27.5); Prothrombin Time 10.3 sec (9.3-11.0)
[2021-12-31 00:03] LABS: ALT 51 U/L (16-63); AST 47 U/L (15-37); Albumin 4.1 g/dL (3.4-5.0); Alkaline Phosphatase 68 U/L (46-116); Anion Gap 11.7 mmol/L (3-11); BUN 10 mg/dL (7-18); Bilirubin, Total 0.2 mg/dL (0.2-1.0); CO2 24.3 mmol/L (21.0-32.0); Calcium 8.9 mg/dL (8.5-10.1); Chloride 107 mmol/L (98-107); ETHANOL BLOOD 167.8 mg/dL (<10); Glucose 102 mg/dL (74-106); Magnesium 2.2 mg/dL (1.8-2.4); Potassium 3.2 mmol/L (3.5-5.1); Sodium 143 mmol/L (136-145); Total Protein 8.6 g/dL (6.4-8.2)
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
[2021-12-31] MEDS: HYDROmorphone 2 MG/ML VIAL 1 MG IVP (00:33)
[2021-12-31] MEDS: Omnipaque 350 MG/ML 100 ML BTL IJ (00:44)
[2021-12-31] MEDS: Normal Saline Flush 10 ML SYR IVP (00:45)
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
[2021-12-31 00:47] LABS: Source Nasal/Nares
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
[2021-12-31 00:55] LABS: Bilirubin Negative (Negative); Blood Trace-lysed (Negative); Clarity Clear (Clear); Glucose Negative (Negative); Ketones Negative (Negative); Leukocyte Esterase Negative (Negative); Nitrite Negative (Negative); Urobilinogen 0.2 EU/dL (Up TO 0.2)
[2021-12-31 01:01] LABS: *AMPHETAMINES SCREEN URINE Negative (Negative); *BARBITURATES SCREEN URINE Negative (Negative); *BENZODIAZEPINES SCREEN URINE Negative (Negative); Cannabinoids THC Positive (Negative); Cocaine Screen,Urine Negative (Negative); METHADONE URINE SCREEN Negative (Negative); OPIATES URINE SCREEN Positive (Negative)
[2021-12-31 01:05] LABS: Bacteria Rare HPF (Negative); C & S Indicated? No; Casts Negative LPF (Negative); Crystals Negative HPF (Negative); Epithelial Cells Rare HPF (Negative); Mucus Trace (Negative); WBC 0-2 HPF (0-5)
[2021-12-31] MEDS: HYDROmorphone 2 MG/ML VIAL 0.5 MG IVP (01:06)
[2021-12-31] MEDS: Ondansetron 4 MG/2 ML VIAL IVP (01:07)
[2021-12-31 01:09] LABS: Tricyclic Antidepressants Negative (Negative)
[2021-12-31 01:24] LABS: COVID-19 PCR Negative (Negative)
--- NOTE | 2021-12-31 01:39 | W.ANESPRE ---
General Info Date of Service Date Performed: 12/31/21 Height: 5 ft 8 in Weight: 117.2 kg Body Mass Index (BMI): 39.2 Meds Allergies and Home Medications Allergies Allergy/AdvReac Type Severity Reaction Status Date / Time tramadol AdvReac suicidal Verified 03/14/21 09:17 thoughts Home Medication Medication Instructions Recorded Unknown [No Known Home Meds] 12/27/20 Current Visit Medications: Current Medications Generic Name Dose Route Start Last Admin Trade Name Freq PRN Reason Stop Dose Admin Sodium Chloride 1,000 mls @ 150 mls/hr 12/30/21 23:15 12/30/21 23:39 Saline 1000ml Bag IV 150 mls/hr INFUSION PARUL Administration Sodium Chloride 500 mls @ 0 mls/hr 12/30/21 23:09 Saline 500ml Bag IV PRN PRN As Directed IV Miscellaneous Supplies 1 each 12/30/21 23:15 Iv Access IV DIRECTED PARUL Iohexol 100 ml 12/31/21 00:45 12/31/21 00:44 Omnipaque 350 Mg/Ml 100 Ml Btl IJ 01/30/22 23:59 100 ml DIRECTED PARUL Administration Sodium Chloride 0 ml 12/30/21 23:09 12/31/21 00:45 Normal Saline Flush 10 Ml Syr IVP 10 ml PRN PRN Administration Sodium Chloride 250 ml 12/31/21 00:45 12/31/21 00:44 Normal Saline 250 Ml Bag IJ 50 ml DIRECTED PARUL Administration PFSH Active Problems Active Problems: Problem Status Onset Code Rupture of right biceps tendon 08/11/20 S46.211A 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 G56.31 Derangement of posterior horn of medial meniscus of left knee 06/14/15 M23.322 Acute medial meniscus tear of left knee S83.242A Complete tear of anterior cruciate ligament of left knee S83.512A Acute lateral meniscal injury of left knee S83.8X2A Status post reconstruction of anterior cruciate ligament Z98.890 Surgical History Surgical History History of surgery on arm S/P ACL reconstruction ~10/2014 with allograft Tobacco Smoking/Tobacco Use Status: Current every day Tobacco Type: cigarettes Years smoked: 15 Alcohol Alcohol Intake: current Alcohol intake frequency: holidays/special occasions only Substance Use Substance use: Never Substance use type: does not use Vital Signs and Lab Results Vital Signs Most Recent Vital Signs in EMR: Most Recent Vital Signs Temp Pulse Resp BP Pulse Ox 36.3 C L 97 H 19 135/88 99 12/30/21 23:21 12/31/21 00:55 12/31/21 00:55 12/31/21 00:55 12/31/21 00:55 Lab Results Result Diagrams: 12/30/21 23:35 12/30/21 23:35 Blood Type / Crossmatch: No Data to Display Complete Blood Count: White Blood Count 15.64 10^3/uL (4.4-10.8) H 12/30/21 23:35 12/30/21 Red Blood Count 5.40 10^6/uL (4.36-5.78) 12/30/21 23:35 12/30/21 Hemoglobin 17.4 g/dL (13.5-17.5) 12/30/21 23:35 12/30/21 Hematocrit 52.9 % (40.0-50.0) H 12/30/21 23:35 12/30/21 Platelet Count 264 10^3/uL (130-400) 12/30/21 23:35 12/30/21 Complete Metabolic Panel: Sodium Level 143 mmol/L (136-145) 12/30/21 23:35 12/30/21 Potassium Level 3.2 mmol/L (3.5-5.1) L 12/30/21 23:35 12/30/21 Chloride Level 107 mmol/L (98-107) 12/30/21 23:35 12/30/21 Carbon Dioxide Level 24.3 mmol/L (21.0-32.0) 12/30/21 23:35 12/30/21 Blood Urea Nitrogen 10 mg/dL (7-18) 12/30/21 23:35 12/30/21 Creatinine 1.0 mg/dL (0.70-1.30) 12/30/21 23:35 12/30/21 Estimated GFR/1.73 m2 >= 60.00 (mL/min/1.73m2) 12/30/21 23:35 12/30/21 Magnesium Level 2.2 mg/dL (1.8-2.4) 12/30/21 23:35 12/30/21 Calcium Level 8.9 mg/dL (8.5-10.1) 12/30/21 23:35 12/30/21 Albumin 4.1 g/dL (3.4-5.0) 12/30/21 23:35 12/30/21 Glucose Level 102 mg/dL (74-106) 12/30/21 23:35 12/30/21 Liver Function Panel: Alanine Aminotransferase (ALT/SGPT) 51 U/L (16-63) 12/30/21 23:35 12/30/21 Aspartate Amino Transf (AST/SGOT) 47 U/L (15-37) H 12/30/21 23:35 12/30/21 Coagulation Panel: INR International Normalized Ratio 1.0 (0.9-1.1) 12/30/21 23:35 12/30/21 Prothrombin Time 10.3 sec (9.3-11.0) 12/30/21 23:35 12/30/21 Activated Partial Thromboplast Time 22.6 sec (21.0-27.5) 12/30/21 23:35 12/30/21 Cardiac Panel: No Data to Display Arterial Blood Gas: No Data to Display Venous Blood Gas: No Data to Display Pancreas Panel: No Data to Display Thyroid Panel: No Data to Display Infectious Disease: Coronavirus (COVID-19)(PCR) Negative (Negative) 12/30/21 23:59 12/30/21 Coronavirus 2019 Source Nasal/Nares 12/30/21 23:59 12/30/21 Blood Cultures: No Data to Display Toxicology Panel: Ethyl Alcohol Level 167.8 mg/dL (<10) H 12/30/21 23:35 12/30/21 Urine Amphetamines Screen Negative (Negative) 12/31/21 00:30 12/31/21 Urine Benzodiazepines Screen Negative (Negative) 12/31/21 00:30 12/31/21 Urine Barbiturates Screen Negative (Negative) 12/31/21 00:30 12/31/21 Urine Cocaine Screen Negative (Negative) 12/31/21 00:30 12/31/21 Urine Methadone Screen Negative (Negative) 12/31/21 00:30 12/31/21 Urine Opiates Screen Positive (Negative) A 12/31/21 00:30 12/31/21 Ur Tricyclic Antidepressants Screen Negative (Negative) 12/31/21 00:30 12/31/21 Ur Tetrahydrocannabinol (THC) Scrn Positive (Negative) A 12/31/21 00:30 12/31/21 Anesthesia Assessment and Plan Anesthesia History Personal History: No History of Anesthesia Complications Family History: No Family History of Anesthesia Complications Exercise Tolerance Exercise Tolerance: Metabolic Equivalents>4 Pertinent Negatives Pertinent Negatives: No Symptoms of GERD Cardiac & Pulmonary Exam Cardiac Exam: Normal S1/S2 Heart Sounds Pulmonary Exam: Clear Bilateral Breath Sounds Implantable Cardiac Device Does patient have a Pacemaker or an ICD?: No Airway Exam Known Difficult Airway: No Mallampati Class: 1 Mouth Opening: Normal (> 3cm) Thyromental Distance: Greater than 3 cm Neck Range of Motion: Full ROM Neck Circumference: Normal Teeth Condition: Normal Dentition ASA Classification ASA Score: ASA 3 Emergency Case?: Yes NPO Status NPO Status: Full Stomach (Last meal at 7pm, last drink reported same time.) Anesthesia Plan Resuscitation Status: DNR Fully Suspended During Perioperative Period Anesthesia Technique: Primary Nerve Block Airway Planned: Natural Airway Monitors Used: Standard Monitors Preoperative Comments:: Assisting with procedural sedation in ED.
--- NOTE | 2021-12-31 02:15 | DI.RAD_ITS ---
Exam(s) XR HIP LT COMPLETE AP PELVIS EXAM: XR HIP LT COMPLETE AP PELVIS INDICATION: s/p reduction. COMPARISON: CT CT THORACIC LUMBAR SPINE REC from 12/30/[address] CHEST/ABD/PEL W from 12/30/2021 TECHNIQUE: 2D digital imaging was performed. Two views. FINDINGS: The left humeral head is now in normal located within the acetabulum. No fracture is visible. The h ip joint spaces are well maintained bilaterally. A Raymundo catheter is seen in the bladder. Some cont rast material is noted. There is no evidence of bladder injury. No additional pelvic fractures visi ble. SI joints and pubic symphysis unremarkable. IMPRESSION: Satisfactory reduction of left hip dislocation. No fracture visible. DATA REPOSITORY: RADIATION DOSE DELIVERED:
--- NOTE | 2021-12-31 02:19 | NUR.NOTE ---
Nursing Note: 24mcg Presidex and 50mg Ketamine at 0220;
--- NOTE | 2021-12-31 02:21 | NUR.NOTE ---
Nursing Note: 25mg Ketamine at 0221. Procedure completed at 0220.
--- NOTE | 2021-12-31 02:24 | NUR.NOTE ---
Nursing Note: 4mg Zofran and 0.2 glycohpyrollate given pre-procedure.
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
--- NOTE | 2021-12-31 04:13 | NUR.NOTE ---
Nursing Note: Both IV's removed by patient. On inspection, bleeding is controlled.
--- NOTE | 2022-01-02 09:15 | DI.CT_ITS ---
Exam(s) CT LOWER EXTREMITY LT WO EXAM: CT LOWER EXTREMITY LT WO CLINICAL HISTORY: RECONSTRUCTIONS OF LEFT HIP PER DR. ARMAS. TECHNIQUE: Imaging Protocol: Axial, coronal and sagittal reformatted images were reconstructed from the chest abdomen pelvic CT.. CONTRAST MATERIAL: No additional contrast administered. COMPARISON: CT CT THORACIC LUMBAR SPINE REC from 12/30/2021 FINDINGS: Bones: There is a posterior dislocation of the left femoral head with respect to the acetabulum. No fractures are identified. Small amount of air seen within the joint space. No soft tissue hematomas . IMPRESSION: Posterior dislocation of the left hip. No evidence of fracture. RADIATION DOSE DELIVERED: Total DLP DATA REPOSITORY: All CT scans at this facility are submitted to the National Radiology Data Registry (NRDR) Dose Index Registry (DIR) with the [employer] (ACR). RADIATION OPTIMIZATION: All CT scans at this facility use at least one of these dose optimization te chniques: automated exposure control; mA and/or kV adjustment per patient size (includes targeted exa ms where dose is matched to clinical indication); or iterative reconstruction.
== END 2021-12-31 04:18 | disposition home or self-care (01) ==
LOC: ER 12-31 04:29
PROVIDERS: Emergency Provider Emergency Medicine
DX: S73.015A Posterior dislocation of left hip, initial encounter (principal); F10.129 Alcohol abuse with intoxication, unspecified; Y90.6 Blood alcohol level of 120-199 mg/100 ml; R10.2 Pelvic and perineal pain; V89.2XXA Person injured in unspecified motor-vehicle accident, traffic, initial encounter; Z20.822 Contact with and (suspected) exposure to COVID-19
CPT/HCPCS: 27250; 29505; 51702; 73552; 74177; 80053; 80307; 87635; 96374; 96375; 96376; 99284; 99285; 70450; 71260; 72125; 73502; 80320; 81003; 81015; 83735; 85025; 85610; 85730; J2405; J3490

== ENCOUNTER 2022-01-15 14:05 | Outpatient (CLI) | payer MEDICAID, SELFPAY ==
--- NOTE | 2022-01-15 14:00 | DI.RAD_ITS ---
Exam(s) XR HIP LT AP LAT ONLY EXAM: XR HIP LT AP LAT ONLY CLINICAL HISTORY: left hip f/u. TECHNIQUE: 2D digital imaging was performed. COMPARISON: CR,XR XR HIP LT COMPLETE AP PELVIS from 12/31/2021 FINDINGS: Two views There is no evidence of fracture nor dislocation. No joint space narrowing. No radiographic evidenc e of avascular necrosis. No soft tissue calcifications. Bone density is normal. No significant oss eous. IMPRESSION: No fractures. No degenerative changes. No evidence of avascular necrosis. DATA REPOSITORY: RADIATION DOSE DELIVERED:
== END 2022-01-15 14:06 | disposition home or self-care (01) ==
PROVIDERS: Visit Provider Student in an Organized Health Care Education/Training Program
DX: M25.552 Pain in left hip
CPT/HCPCS: 73502

== ENCOUNTER 2022-08-25 20:56 | Emergency (ER) | payer MEDICAID, SELFPAY ==
[2022-08-25 21:00] VITALS: BP 165/96; PULSE 103; RESP 20; TEMP 37.1; O2SAT 99
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
[2022-08-25 21:21] LABS: Abs Immature Grans 0.14 10^3/uL (0.0-0.06); Absolute Basophil Count 0.06 10^3/uL (0.0-0.2); Basophils % 0.3; Eosinophils % 0.1; HCT 53.6 % (40.0-50.0); Immature Grans % 0.7; Lymphocytes % 13.9; MCH 32.7 pg (27.0-33.0); MCHC 33.6 % (32.0-36.0); MCV 98 fL (80-95); Monocytes % 3.1; Neutrophils % 81.9; Platelet Count 273 10^3/uL (130-400); RDW 11.9 % (11.8-14.1); RDW-SD 43.7 fL; WBC 19.79 10^3/uL (4.4-10.8)
[2022-08-25 21:25] LABS: Absolute Eosinophil Count 0.02 10^3/uL (0.0-0.7); Absolute Lymphocyte Count 2.75 10^3/uL (1.2-3.4); Absolute Monocyte Count 0.61 10^3/uL (0.1-0.8); Absolute Neutrophil Count 16.21 10^3/uL (1.2-6.7)
[2022-08-25 21:34] LABS: ALT 23 U/L (16-63); AST 27 U/L (15-37); Albumin 3.9 g/dL (3.4-5.0); Alkaline Phosphatase 80 U/L (46-116); Anion Gap 11.2 mmol/L (3-11); BUN 12 mg/dL (7-18); Bilirubin, Total 0.1 mg/dL (0.2-1.0); CO2 22.8 mmol/L (21.0-32.0); CREATININE 0.8 mg/dL (0.70-1.30); Chloride 106 mmol/L (98-107); Estimated GFR 121.34 (mL/min/1.73m2); Glucose 108 mg/dL (74-106); Sodium 140 mmol/L (136-145); Total Protein 8.7 g/dL (6.4-8.2)
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
[2022-08-25 23:02] VITALS: BP 113/76; PULSE 101; RESP 16; TEMP 36.9; O2SAT 98
[2022-08-26] VITALS (15 sets, daily range): BP systolic 130–140; BP diastolic 68–86; PULSE 82–104; RESP 17–19; TEMP 36.9; O2SAT 93–98
[2022-08-26] MEDS: ceFAZolin 3,000 MG in Normal Saline 100 ML 200 MG IVPB (00:04)
[2022-08-26] MEDS: MORPHine 4 MG/ML SYR IVP ×2 (00:39→06:19)
[2022-08-26] MEDS: MORPHine 4 MG/ML SYR (03:22)
== END 2022-08-26 07:41 | disposition short-term general hospital (02) ==
PROVIDERS: Emergency Provider Student in an Organized Health Care Education/Training Program
DX: S02.642A Fracture of ramus of left mandible, initial encounter for closed fracture (principal); F10.120 Alcohol abuse with intoxication, uncomplicated; Z20.822 Contact with and (suspected) exposure to COVID-19; Y04.2XXA Assault by strike against or bumped into by another person, initial encounter; Y90.6 Blood alcohol level of 120-199 mg/100 ml
CPT/HCPCS: 36415; 80053; 96361; 96365; 96375; 96376; 99285; 70450; 70486; 72125; 80320; 85025; J0690; J2270